=== PATIENT | female | born 1965 | race Caucasian/White ===

== ENCOUNTER → 2019-05-02 | Day surgery (SDC) | payer BC ==
[~2019-05-02] MED LIST: DIPRIVAN 200 MG/20 ML IV ONE; Lactated Ringers 1,000 ML IV ONE; Lactated Ringers 1,000 ML IV SCH
[2019-05-02 13:05] VITALS: PULSE 72; O2SAT 100
[2019-05-02 13:08] VITALS: BP 148/74
--- NOTE | 2019-05-02 13:14 | OP ---
SURGERY DATE/TIME: 05/02/2019 1143 PREOPERATIVE DIAGNOSIS: Due for colorectal cancer screening. POSTOPERATIVE DIAGNOSES: 1) Due for colorectal cancer screening. 2) Diverticulosis of the sigmoid colon. PROCEDURE: Colonoscopy. SURGEON: Amando Dawkins M.D. ANESTHESIA: MAC. ESTIMATED BLOOD LOSS: None. COMPLICATIONS: None. SPECIMEN: None. PATIENT CONDITION: Stable. HISTORY: A 53 year-old female presented to the office for colorectal cancer screening. She has no symptoms. The risks of anesthesia, perforation, incomplete exam were discussed with the patient and she elected to proceed with colonoscopy. FINDINGS: Mild diverticulosis limited to the sigmoid colon otherwise normal exam. DESCRIPTION OF PROCEDURE: The patient was brought to the endoscopy suite. MAC anesthesia was induced. Time out was performed. Perianal exam was normal. On external exam there is small hemorrhoidal skin tag otherwise normal. Scope was introduced. It was advanced without difficulty to the terminal ileum and pictures of appendix and ileocecal valve were taken. Prep was good. There was good visualization. There was no longer than 6 minute withdrawal time. There was diverticulosis limited to the sigmoid colon. There were no lesion. The patient tolerated the procedure well. She was then taken to recovery in stable condition.
== END | disposition home or self-care (01) ==
LOC: SDC 10:00
PROVIDERS: ATTEND Surgery
DX: Z12.11 Encounter for screening for malignant neoplasm of colon (principal); K57.30 Diverticulosis of large intestine without perforation or abscess without bleeding
CPT/HCPCS: J2704